=== PATIENT | female | born 1980 | race Caucasian/White ===

== ENCOUNTER 2017-05-16 14:46 | Emergency (ER) | payer OTHER ==
[2017-05-16 14:54] VITALS: BP 101/65; PULSE 77; TEMP 98; BMI 24.7
[2017-05-16] MEDS ORDERED: DIPHTH,PERTUSS(ACELL),TET VAC 0.5 ML VIAL IM ONE (15:58)
--- NOTE | 2017-05-16 15:59 | PDOC ---
History of Present Illness - General History Source: Patient Exam Limitations: No Limitations - History of Present Illness Initial Comments: 05/16/17 16:02 The patient is a 36 year old female, with a significant past medical history of lupus, who presents to the emergency department complaining of a laceration to the right thumb earlier this afternoon. The patient reports she was cutting up raw chicken, when suddenly she sliced her thumb. Patient reports her thumb has been actively bleeding since the incident. She reports a throbbing sensation at wound site, but denies any pain. nies any numbness or tingling at the site of the wound. The patient denies any suicidal or homicidal ideations. She denies any fever, chills, cough, headache, or dizziness. Allergies: Penicillins Past Surgical History: None reported Social History: Former smoker. No ETOH or drug use. <Marika Chisholm - Last Filed: 05/16/17 16:04> <Kami Baptiste - Last Filed: 05/16/17 18:51> - General Chief Complaint: Laceration Stated Complaint: RIGHT THUMB LACERATION Time Seen by Provider: 05/16/17 15:12 Past History <Mairka Chisholm - Last Filed: 05/16/17 16:04> - Past Medical History Other medical history: LUPUS - Psycho/Social/Smoking Cessation Hx Anxiety: No Suicidal Ideation: No Smoking History: Former smoker Have you smoked in the past 12 months: No If you are a former smoker, when did you quit?: 1 YEAR AGO Information on smoking cessation initiated: No Hx Alcohol Use: No Drug/Substance Use Hx: No Substance Use Type: None <Kami Baptiste - Last Filed: 05/16/17 18:51> - Past Medical History Allergies/Adverse Reactions: Allergies Allergy/AdvReac Type Severity Reaction Status Date / Time Penicillins AdvReac Severe Verified 05/16/17 14:47 Home Medications: Ambulatory Orders Chloroquine Phosphate [Aralen Phosphate] 500 mg PO DAILY 05/16/17 Ciprofloxacin [Cipro (Restricted To Id)] 500 mg PO Q12H #14 tablet 05/16/17 Hydroxychloroquine Sulfate [Plaquenil] 200 mg PO BID 05/16/17 Review of Systems - Review of Systems Able to Perform ROS?: Yes Comments:: 05/16/17 16:02 GENERAL/CONSTITUTIONAL: No fever or chills. No weakness. HEAD, EYES, EARS, NOSE AND THROAT: No change in vision. No ear pain or discharge. No sore throat. CARDIOVASCULAR: No chest pain or shortness of breath. RESPIRATORY: No cough, wheezing, or hemoptysis. GASTROINTESTINAL: No nausea, vomiting, diarrhea or constipation. GENITOURINARY: No dysuria, frequency, or change in urination. MUSCULOSKELETAL: No joint or muscle swelling or pain. No neck or back pain. SKIN: Yes: +laceration to right thumb, +actively bleeding laceration. No rash NEUROLOGIC: No headache, vertigo, loss of consciousness, or change in strength/ sensation. ENDOCRINE: No increased thirst. No abnormal weight change. HEMATOLOGIC/LYMPHATIC: No anemia, easy bleeding, or history of blood clots. ALLERGIC/IMMUNOLOGIC: No hives or skin allergy. <Marika Chisholm - Last Filed: 05/16/17 16:04> *Physical Exam - Vital Signs Last Vital Signs Temp Pulse Resp BP Pulse Ox 98 F 77 18 101/65 98 05/16/17 14:47 05/16/17 14:47 05/16/17 14:47 05/16/17 14:47 05/16/17 14:47 - Physical Exam Comments: 05/16/17 16:04 GENERAL: Awake, alert, and fully oriented, in no acute distress HEAD: No signs of trauma EYES: PERRLA, EOMI, sclera anicteric, conjunctiva clear ENT: Auricles normal inspection, hearing grossly normal, nares patent, oropharynx clear without exudates. Moist mucosa NECK: Normal ROM, supple, no lymphadenopathy, JVD, or masses LUNGS: Breath sounds equal, clear to auscultation bilaterally. No wheezes, and no crackles HEART: Regular rate and rhythm, normal S1 and S2, no murmurs, rubs or gallops EXTREMITIES: 2.5 cm laceration to the right first digit. Normal range of motion , no edema. No clubbing or cyanosis. No cords, erythema, or tenderness NEUROLOGICAL: Cranial nerves II through XII grossly intact. Normal speech, normal gait SKIN: 2.5 cm laceration to the right first digit. Otherwise warm, Dry, normal turgor, no rashes or lesions noted. <Marika Chisholm - Last Filed: 05/16/17 16:04> - Vital Signs Last Vital Signs Temp Pulse Resp BP Pulse Ox 98 F 77 18 101/65 98 05/16/17 14:47 05/16/17 14:47 05/16/17 14:47 05/16/17 14:47 05/16/17 14:47 <Kami Baptiste - Last Filed: 05/16/17 18:51> Procedures - Laceration/Wound Repair Right Finger 1st digit Wound Length: to 2.5 cm Wound Explored: clean, no foreign body present Wound's Depth, Shape: superficial, flap Irrigated w/ Saline: Yes Anesthesia: 1% Lidocaine Amount of Anesthetic (ccs): 2 (digital block) Wound Repaired With: Sutures Suture Size/Type: 5:0, nylon Number of Sutures: 3 Layer Closure: No Sterile Dressing Applied: Yes <Kami Baptiste - Last Filed: 05/16/17 18:51> Medical Decision Making - Medical Decision Making Will treat prophylactically with cipro, as the wound was exposed to raw chicken. <Kami Baptiste - Last Filed: 05/16/17 18:51> *DC/Admit/Observation/Transfer - Attestations Scribe Attestion: 05/16/17 16:02 Documentation prepared by Marika Chisholm, acting as medical attendant for Kami Baptiste MD. <Marika Chisholm - Last Filed: 05/16/17 16:04> - Discharge Dispostion Admit: No <Kami Baptiste - Last Filed: 05/16/17 18:51> Diagnosis at time of Disposition: Laceration - Discharge Dispostion Disposition: HOME Condition at time of disposition: Stable - Prescriptions Prescriptions: Ciprofloxacin [Cipro (Restricted To Id)] 500 mg PO Q12H #14 tablet - Patient Instructions Printed Discharge Instructions: DI for Laceration Repair -- Finger Additional Instructions: KEEP THE WOUND DRY FOR 48 HOURS. AFTER THAT IT IS OK TO GET IT WET. DO NOT APPLY ANY LOTIONS, CREAMS, OR SOAPS. RETURN TO THE ER BETWEEN 05/25-05/27 TO HAVE STITCHES REMOVED. RETURN TO THE ER IMMEDIATELY FOR SEVERE PAIN, REDNESS, DRAINAGE OF PUS, OR RED STREAKS UP YOUR ARM.
== END 2017-05-16 16:21 | disposition home or self-care (01) ==
LOC: FER 14:46
PROC: 0HQFXZZ Repair Right Hand Skin, External Approach (ICD-10-PCS; principal; 2017-05-16)
PROC: 3E0234Z Introduction of Serum, Toxoid and Vaccine into Muscle, Percutaneous Approach (ICD-10-PCS; 2017-05-16)
DX: S61.011A Laceration without foreign body of right thumb without damage to nail, initial encounter (principal); W26.0XXA Contact with knife, initial encounter; Y93.G1 Activity, food preparation and clean up; Y92.000 Kitchen of unspecified non-institutional (private) residence as the place of occurrence of the external cause; Z87.891 Personal history of nicotine dependence; L93.0 Discoid lupus erythematosus
CPT/HCPCS: 12001-25; 90471; 99282-25

== ENCOUNTER 2019-02-13 19:56 | Emergency (ER) | payer OTHER ==
[2019-02-13 20:06] VITALS: BP 128/81; PULSE 87; TEMP 98.4; BMI 23.8
--- NOTE | 2019-02-13 20:12 | PDOC ---
History of Present Illness - General History Source: Patient Exam Limitations: No Limitations - History of Present Illness Initial Comments: 02/13/19 20:27 The patient is a 38 year old female, with a significant past medical history of Lupus (diagnosed 13 years ago, compliant with medication) who presents to the emergency department with 4 days of left ankle pain. The patient states this afternoon when she came home from work she noticed her ankle was swollen and had several red rashes. The patient notes her ankle pain is worsened with walking and with ankle movements. 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 The patient notes her last lupus flare up was in the summer (malar rash) but denies any symptoms related her her Lupus except for erythematous rash of anterior chest. The patient denies abdominal pain, chest pain, shortness of breath, headache or dizziness. The patient denies fever, chills, nausea, vomit, diarrhea and constipation. The patient denies dysuria, frequency, urgency or hematuria. Allergies: NKDA Past surgical history: None reported Social history: None reported PCP:Paul Hu <Ryley Stewart - Last Filed: 02/13/19 20:32> <Mona Abreu - Last Filed: 02/14/19 04:29> - General Chief Complaint: Pain Stated Complaint: LT ANKLE PAIN Time Seen by Provider: 02/13/19 19:58 Past History <Ryley Stewart - Last Filed: 02/13/19 20:32> - Past Medical History COPD: No Other medical history: LUPUS - Suicide/Smoking/Psychosocial Hx Smoking History: Current every day smoker Have you smoked in the past 12 months: No Number of Cigarettes Smoked Daily: 5 If you are a former smoker, when did you quit?: 1 YEAR AGO Information on smoking cessation initiated: Yes Hx Alcohol Use: No Drug/Substance Use Hx: No Substance Use Type: None <Mona Abreu - Last Filed: 02/14/19 04:29> - Past Medical History Allergies/Adverse Reactions: Allergies Allergy/AdvReac Type Severity Reaction Status Date / Time Penicillins AdvReac Severe Verified 05/16/17 14:47 Home Medications: Ambulatory Orders Chloroquine Phosphate [Aralen Phosphate] 500 mg PO DAILY 05/16/17 Hydroxychloroquine Sulfate [Plaquenil] 200 mg PO BID 05/16/17 Review of Systems - Review of Systems Able to Perform ROS?: Yes Comments:: 02/13/19 20:28 GENERAL/CONSTITUTIONAL: No fever or chills. No weakness. HEAD, EYES, EARS, NOSE AND THROAT: No change in vision. No ear pain or discharge. No sore throat. CARDIOVASCULAR: No chest pain or shortness of breath. RESPIRATORY: No cough, wheezing, or hemoptysis. GASTROINTESTINAL: No nausea, vomiting, diarrhea or constipation. GENITOURINARY: No dysuria, frequency, or change in urination. MUSCULOSKELETAL:(+) left ankle pain. (+) left ankle swelling. No joint pain. No neck or back pain. SKIN:(+) left ankle skin rashes. NEUROLOGIC: No headache, vertigo, loss of consciousness, or change in strength/ sensation. ENDOCRINE: No increased thirst. No abnormal weight change. HEMATOLOGIC/LYMPHATIC: No anemia, easy bleeding, or history of blood clots. ALLERGIC/IMMUNOLOGIC: No hives or skin allergy. All Other Systems: Reviewed and Negative <Ryley Stewart - Last Filed: 02/13/19 20:32> *Physical Exam - Vital Signs Last Vital Signs Temp Pulse Resp BP Pulse Ox 98.4 F 87 16 128/81 98 02/13/19 20:01 02/13/19 20:01 02/13/19 20:01 02/13/19 20:01 02/13/19 20:01 - Physical Exam Comments: 02/13/19 20:29 GENERAL: Awake, alert, and fully oriented, in no acute distress HEAD: No signs of trauma EYES: PERRLA, EOMI, sclera anicteric, conjunctiva clear ENT: Auricles normal inspection, hearing grossly normal, nares patent, oropharynx clear without exudates. Moist mucosa NECK: Normal ROM, supple, no lymphadenopathy, JVD, or masses LUNGS: Breath sounds equal, clear to auscultation bilaterally. No wheezes, and no crackles HEART: Regular rate and rhythm, normal S1 and S2, no murmurs, rubs or gallops ABDOMEN: Soft, nontender, normoactive bowel sounds. No guarding, no rebound. No masses EXTREMITIES: (+) left lower leg/ankle erythematous macular confluent rash of the distal lower leg and ankle. (+) warm to touch. (+) mildly erythematous. (+) mild edema. Non fluctuant. Normal range of motion. No clubbing or cyanosis. No cords or tenderness NEUROLOGICAL: Cranial nerves II through XII grossly intact. Normal speech, normal gait SKIN: (+) erythematous rash of anterior chest. Warm, Dry, normal turgor. <Ryley Stewart - Last Filed: 02/13/19 20:32> - Vital Signs Last Vital Signs Temp Pulse Resp BP Pulse Ox 98.4 F 87 16 128/81 98 02/13/19 20:01 02/13/19 20:01 02/13/19 20:01 02/13/19 20:01 02/13/19 20:01 <Mona Abreu - Last Filed: 02/14/19 04:29> Moderate Sedation - Procedure Monitoring Vital Signs: Procedure Monitoring Vital Signs Temperature 98.4 F 02/13/19 20:01 Pulse Rate 87 02/13/19 20:01 Respiratory Rate 16 02/13/19 20:01 Blood Pressure 128/81 02/13/19 20:01 O2 Sat by Pulse Oximetry (%) 98 02/13/19 20:01 <Ryley Stewart - Last Filed: 02/13/19 20:32> - Procedure Monitoring Vital Signs: Procedure Monitoring Vital Signs Temperature 98.4 F 02/13/19 20:01 Pulse Rate 87 02/13/19 20:01 Respiratory Rate 16 02/13/19 20:01 Blood Pressure 128/81 02/13/19 20:01 O2 Sat by Pulse Oximetry (%) 98 02/13/19 20:01 <Mona Abreu - Last Filed: 02/14/19 04:29> ED Treatment Course - LABORATORY CBC & Chemistry Diagram: 02/13/19 20:30 02/13/19 20:30 <Mona Abreu - Last Filed: 02/14/19 04:29> Medical Decision Making - Medical Decision Making Documentation has been prepared under my direction and personally reviewed by me in its entirety. I attest that this documented accurately reflects all work, treatment, procedures and medical decision making performed by me. As noted above, this 38-year-old woman presents with left ankle edema with erythematous, mildly tender, mildly warm to touch area of the anterior aspect of the ankle. Past medical history notable for SLE. Patient has had remarkably stable course with no recent flareups of her lupus. Exam as noted. CBC/chemistry profile is essentially normal. Left ankle x-ray performed and interpretation by radiology staff: Normal x-ray without evidence of fracture/dislocation other acute abnormality Although this may be a mild flareup of her lupus, this may also be mild, early cellulitis. 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 Patient has penicillin ALLERGY (anaphylaxis) she states that she has been treated in the past with azithromycin without side effects or ALLERGY. 500 mg azithromycin be given here followed by 250 mg daily for the next 4 days. <Mona Abreu - Last Filed: 02/14/19 04:29> *DC/Admit/Observation/Transfer - Attestations Scribe Attestion: 02/13/19 20:30 Documentation prepared by Ryley Stewart, acting as certified ophthalmic medical technician for Mona Abreu MD <Ryley Stewart - Last Filed: 02/13/19 20:32> <Mona Abreu - Last Filed: 02/14/19 04:29> Diagnosis at time of Disposition: Edema of left ankle SLE (systemic lupus erythematosus) Qualifiers: Systemic lupus erythematosus type: unspecified Systemic lupus erythematosus organ involvement: unspecified Qualified Code(s): M32.9 - Systemic lupus erythematosus, unspecified - Discharge Dispostion Disposition: HOME Condition at time of disposition: Stable - Referrals Referrals: Paul Johnson MD [Primary Care Provider] - - Patient Instructions Printed Discharge Instructions: DI for Ankle Pain Additional Instructions: elevate left ankle as much as possible azithromycin 250mg daily,starting tomorrow ibuprofen/naproxen as needed followup with your [employer] factory worker on Friday,02/15 as scheduled return to ER if you have fever, shortness of breath, severe pain - Post Discharge Activity
[2019-02-13 20:51] LABS: BASO % 0.6 % (0-2.0); EOS % 1.8 % (0-4.5); HEMATOCRIT 36.1 % (32.4-45.2); LYMPH % 22.6 % (8-40); MCH 32.2 pg (25.7-33.7); MCHC 33.2 g/dl (32.0-36.0); MEAN CELL VOLUME 96.9 fl (80-96); MEAN PLT VOLUME 7.9 fl (7.5-11.1); MONO % 11.1 % (3.8-10.2); NEUT % 63.9 % (42.8-82.8); PLATELET COUNT 294 K/MM3 (134-434); RBC 3.73 M/mm3 (3.60-5.2); RDW 13.4 % (11.6-15.6); WHITE BLOOD COUNT 4.8 K/mm3 (4.0-10.8)
[2019-02-13 21:02] LABS: ALBUMIN 3.7 g/dl (3.4-5.0); ALK PHOS 39 U/L (45-117); ANION GAP 8 MMOL/L (8-16); BILIRUBIN,TOTAL 0.4 mg/dl (0.2-1); BLOOD UREA NITROGEN 7 mg/dl (7-18); CALCIUM 8.6 mg/dl (8.5-10); CHLORIDE 101 mmol/L (98-107); CO2 26 mmol/L (21-32); CREATININE 0.7 mg/dl (0.55-1.3); GLUCOSE,RANDOM 85 mg/dl (74-106); SGOT/AST 15 U/L (15-37); SGPT/ALT 8 U/L (13-61); SODIUM 135 mmol/L (136-145); TOT PROT 7.3 g/dl (6.4-8.2)
[2019-02-13] MEDS ORDERED: AZITHROMYCIN 250 MG TABLET PO ONE (21:41)
[2019-02-13] MEDS ORDERED: AZITHROMYCIN 250 MG TABLET ONE (21:43)
== END 2019-02-13 21:47 | disposition home or self-care (01) ==
LOC: FER 19:56
DX: M32.9 Systemic lupus erythematosus, unspecified (principal)
CPT/HCPCS: 36415; 73610-TC-LT-FY; 80053; 84703; 85025; 99282-25

== ENCOUNTER 2023-11-05 12:56 | Emergency (ER) | payer OTHER ==
[2023-11-05 13:16] VITALS: BP 123/87; PULSE 94; RESP 16; TEMP 98.6; BMI 22.8
[2023-11-05] MEDS ORDERED: CLINDAMYCIN HCL 150 MG CAPSULE (FP) PO ONE (14:08)
[2023-11-05] MEDS ORDERED: CLINDAMYCIN HCL 150 MG CAPSULE (FP) ONE (14:20)
== END 2023-11-05 14:25 | disposition home or self-care (01) ==
LOC: FER 12:56 → SUPCPDRO 12:56 → FER 14:25
DX: M79.661 Pain in right lower leg (principal); R22.41 Localized swelling, mass and lump, right lower limb; L03.115 Cellulitis of right lower limb
CPT/HCPCS: 93971-TC; 99284-25